=== PATIENT | female | born 1995 | race Asian ===

== ENCOUNTER → 2016-11-07 13:59 | Emergency (ER) | payer OTHER ==
[2016-11-07 14:52] VITALS: BP 0/0
== END | disposition left against medical advice (07) ==
LOC: ED 13:59
DX: R25.2 Cramp and spasm (principal); Z53.21 Procedure and treatment not carried out due to patient leaving prior to being seen by health care provider

== ENCOUNTER 2016-11-09 03:48 | Emergency (ER) | payer OTHER ==
[2016-11-09] MEDS ORDERED: NS 0.9% 1000 ML* 1,000 ML IV ONE (04:47)
[2016-11-09] MEDS ORDERED: Ondansetron INJ* 2 MG/ML VIAL IV ONE (04:47)
[2016-11-09 05:15] LABS: Hematocrit 36 % (35-47); Hemoglobin 11.7 g/dl (12.0-16.0); Mean Corpuscular HGB Conc 32 g/dl (31-36); Mean Corpuscular Hemoglobin 28 pg (27-31); Mean Corpuscular Volume 87 fL (80-97); Mean Platelet Volume 10 um3 (7.4-10.4); Red Blood Count 4.16 10^6/ul (4.0-5.4); Red Cell Distribution Width 16 % (10.5-15); White Blood Count 14.8 10^3/ul (3.5-10.8)
[2016-11-09 05:34] LABS: ALT 13 U/L (7-52); Albumin 4.3 g/dL (3.2-5.2); Alkaline Phosphatase 8 U/L (34-104); BUN/Creatinine Ratio 16.9 (8-20); Blood Urea Nitrogen 12 mg/dL (6-24); C Reactive Protein < 1.00 mg/L (< 5.00); CO2 Carbon Dioxide 25 mmol/L (22-32); Calcium 9.3 mg/dL (8.6-10.3); Chloride 107 mmol/L (101-111); EGFR African American 131.2 (>60); Globulin 3.1 g/dL (2-4); Glucose 96 mg/dL (70-100); Lipase 34 U/L (11.0-82.0); Sodium 137 mmol/L (133-145); Total Protein 7.4 g/dL (6.4-8.9)
[2016-11-09 05:43] LABS: Anion Gap 5 mmol/L (2-11)
[2016-11-09 06:28] VITALS: BP 96/62
--- NOTE | 2016-11-09 06:57 | ED ---
I, Oh,Soohsean, scribed for Brandt Butler MD on 11/09/16 at 0430 . Abdominal Pain/Female - HPI Summary HPI Summary: This 21 y/o female presents to ED via ambulance for intermittent mid suprapubic abd pain since 6 days ago. Positive n/v. Negative vaginal bleeding, discharge, dysuria, fever, or chills. Pt states that abd pain is similar to menstrual pain. IBP alleviates the abd pain. LNMP was 10/24/2016. Pt is currently on control, and denies any likelihood of . PMHx does not include ovarian cyst, but does include recently diagnosed chlamydia. Negative pelvic exam. Pt is currently on abx but does not recall the name or dose. - History of Current Complaint Chief Complaint: EDAbdPain Stated Complaint: ABD PAIN Time Seen by Provider: 11/09/16 04:13 Hx Obtained From: Patient Onset/Duration: Gradual Onset, Resolved Timing: Intermittent Episode Lasting Pain Intensity: 6 Pain Scale Used: 0-10 Numeric Location: Suprapubic - mid Radiates: No Aggravating Factor(s): Nothing Alleviating Factor(s): OTC Analgesics Associated Signs and Symptoms: Positive: Nausea, Vomiting. Negative: Fever, Urinary Symptoms, Vaginal Bleeding, Vaginal Discharge Allergies/Adverse Reactions: Allergies Allergy/AdvReac Type Severity Reaction Status Date / Time No Known Allergies Allergy Verified 11/09/16 04:53 PMH/Surg Hx/FS Hx/Imm Hx Endocrine/Hematology History: Denies: Hx Diabetes Cardiovascular History: Denies: Hx Myocardial Infarction History: Reports: Other Problems/Disorders - recently diagnosed with chlamydia Infectious Disease History: No Infectious Disease History: Denies: Traveled Outside the [place] in Last 30 Days - Family History Known Family History: Negative: Cardiac Disease - Social History Occupation: Student Alcohol Use: Rare Hx Substance Use: No Substance Use Type: Reports: None Hx Tobacco Use: No Smoking Status (MU): Never Smoked Tobacco Review of Systems Negative: Fever Positive: Abdominal Pain - mid suprapubic pain, Vomiting, Nausea Negative: dysuria, discharge All Other Systems Reviewed And Are Negative: Yes Physical Exam - Summary Physical Exam Summary: The patient is well-nourished in no acute distress and in no acute pain. The skin is warm and dry and skin color reflects adequate perfusion. HEENT: The head is normocephalic and atraumatic. The pupils are equal and reactive. The conjunctivae are clear and without drainage. Nares are patent and without drainage. Mouth reveals moist mucous membranes and the throat is without erythema and exudate. The external ears are intact. The ear canals are patent and without drainage. The tympanic membranes are intact. Neck is supple with full range of motion and non-tender. There are no carotid bruits. There is no neck vein distension. Respiratory: Chest is non-tender. Lungs are clear to auscultation and breath sounds are symmetrical and equal. Cardiovascular: Hear is regular rate and rhythm. There is no murmur or rub auscultated. There is no peripheral edema and pulses are symmetrical and equal. Abdomen: The abdomen is soft and non-tender. Pt points to her uterus as location of pain, but is not tender when palpated. There are normal bowel sounds heard in all four quadrants and there is no organomegaly palpated. Musculoskeletal: There is no back pain noted. Extremities are non-tender with full range of motion. There is good capillary refill. There is no peripheral edema or calf tenderness elicited. Neurological: Patient is alert and oriented to person, place and time. The patient has symmetrical motor strength in all four extremities. Cranial nerves are grossly intact. Deep tendon reflexes are symmetrical and equal in all four extremities. Psychiatric: The patient has an appropriate affect and does not exhibit any anxiety or depression. Triage Information Reviewed: Yes Vital Signs On Initial Exam: Initial Vitals Temp Pulse Resp BP Pulse Ox 98.4 F 63 18 113/69 100 11/09/16 04:05 11/09/16 04:05 11/09/16 04:05 11/09/16 04:05 11/09/16 04:05 Vital Signs Reviewed: Yes Diagnostics - Vital Signs Vital Signs Temp Pulse Resp BP Pulse Ox 11/09/16 04:05 98.4 F 63 18 113/69 100 - Laboratory Lab Results: Lab Results 11/09/16 11/09/16 11/09/16 Range/Units 05:05 05:05 05:05 WBC 14.8 H (3.5-10.8) 10^3/ul RBC 4.16 (4.0-5.4) 10^6/ul Hgb 11.7 L (12.0-16.0) g/dl Hct 36 (35-47) % MCV 87 (80-97) fL MCH 28 (27-31) pg MCHC 32 (31-36) g/dl RDW 16 H (10.5-15) % Plt Count 233 (150-450) 10^3/ul MPV 10 (7.4-10.4) um3 Neut % (Auto) 86.6 H (38-83) % Lymph % (Auto) 8.1 L (25-47) % [place] % (Auto) 4.8 (1-9) % Eos % (Auto) 0.1 (0-6) % Baso % (Auto) 0.4 (0-2) % Absolute Neuts (auto) 12.9 H (1.5-7.7) 10^3/ul Absolute Lymphs (auto) 1.2 (1.0-4.8) 10^3/ul Absolute Monos (auto) 0.7 (0-0.8) 10^3/ul Absolute Eos (auto) 0 (0-0.6) 10^3/ul Absolute Basos (auto) 0.1 (0-0.2) 10^3/ul Absolute Nucleated RBC 0.01 10^3/ul Nucleated RBC % 0 Sodium 137 (133-145) mmol/L Potassium TNP Chloride 107 (101-111) mmol/L Carbon Dioxide 25 (22-32) mmol/L Anion Gap 5 (2-11) mmol/L BUN 12 (6-24) mg/dL Creatinine 0.71 (0.51-0.95) mg/dL Est GFR ( Amer) 131.2 (>60) Est GFR (Non-Af Amer) 102.0 (>60) BUN/Creatinine Ratio 16.9 (8-20) Glucose 96 (70-100) mg/dL Lactic Acid 1.2 (0.5-2.0) mmol/L Calcium 9.3 (8.6-10.3) mg/dL Total Bilirubin 0.30 (0.2-1.0) mg/dL AST TNP ALT 13 (7-52) U/L Alkaline Phosphatase 8 L (34-104) U/L C-Reactive Protein < 1.00 (< 5.00) mg/L Total Protein 7.4 (6.4-8.9) g/dL Albumin 4.3 (3.2-5.2) g/dL Globulin 3.1 (2-4) g/dL Albumin/Globulin Ratio 1.4 (1-3) Lipase 34 (11.0-82.0) U/L Beta HCG, Quant 0.61 mIU/mL Result Diagrams: 11/09/16 05:05 11/09/16 05:05 Lab Statement: Any lab studies that have been ordered have been reviewed, and results considered in the medical decision making process. Re-Evaluation - Re-Evaluation First Eval Re-Evaluation Time: 06:16 Comment: MD in room to update pt on blood work and plan of care involving outpatient f/u with [facility]. No pain upon re-evaluation Abdominal Pain Fem Course/Dx - Course Course Of Treatment: This 21 y/o female presents to ED for suprapubic pain since 6 days ago. Pt is recently diagnosed with chlamydia and is currently on 10x abx treatment course. Pt states that she wasn't able to tolerate abx today due to n/v. Blood work indicates elevated WBC of 14.8. Pt was not noted with any abd tenderness upon examination. She is discharged with strong recommendation to finish her abx treatment as instructed and to follow up with her [facility]. - Diagnoses Provider Diagnoses: Pelvic pain, Pelvic infection in female, Dehydration, adverse reaction to medication Discharge - Discharge Plan Condition: Stable Disposition: HOME Prescriptions: Ondansetron ODT TAB* [Zofran 4 MG Odt TAB*] 4 mg PO Q8H PRN #20 tab.odt PRN Reason: Nausea Patient Education Materials: Pelvic Pain in Women (ED), Ondansetron (By mouth) Referrals: [facility] [Outside] - 2 Days Additional Instructions: Be sure to continue and finish your antibiotic treatment as instructed. The documentation as recorded by the Joe poole Soohyun accurately reflects the service I personally performed and the decisions made by , Brandt Butler MD.
== END 2016-11-09 06:27 | disposition home or self-care (01) ==
LOC: ED 03:48
DX: R10.2 Pelvic and perineal pain (principal); N73.9 Female pelvic inflammatory disease, unspecified; E86.0 Dehydration; T36.95XA Adverse effect of unspecified systemic antibiotic, initial encounter; Y92.9 Unspecified place or not applicable
CPT/HCPCS: 36415; 80053; 83605; 83690; 84702; 85025; 86140; 96361; 96374; 99282; J2405